=== PATIENT | male | born 1965 | race Caucasian/White ===

== ENCOUNTER 2018-04-01 17:35 | Emergency (ER) | payer OTHER ==
[~2018-04-01] VITALS: Ht 167.6 cm; Wt 67.6 kg
[2018-04-01 17:49] VITALS: Ht 167.6 cm; Wt 67.6 kg
[2018-04-01 22:41] VITALS: BP 154/97
== END 2018-04-01 22:41 | disposition home or self-care (01) ==
LOC: ED 17:35 → EDBD 17:35 → ED 22:41
DX: S43.401A Unspecified sprain of right shoulder joint, initial encounter (principal); I10 Essential (primary) hypertension; X58.XXXA Exposure to other specified factors, initial encounter; Y93.89 Activity, other specified; Y92.89 Other specified places as the place of occurrence of the external cause; Y99.0 Civilian activity done for income or pay
CPT/HCPCS: J1885; J2270

== ENCOUNTER 2020-08-07 13:35 | Emergency (ER) | payer SELFPAY ==
[~2020-08-07] VITALS: Ht 160 cm; Wt 72.1 kg
[2020-08-07 14:19] VITALS: Ht 160 cm; Wt 72.1 kg
[2020-08-07] MEDS ORDERED: POLYTRIM OP (15:04)
[2020-08-07 15:30] VITALS: BP 146/90
== END 2020-08-07 15:30 | disposition home or self-care (01) ==
LOC: ED 13:35
DX: S05.01XA Injury of conjunctiva and corneal abrasion without foreign body, right eye, initial encounter (principal); I10 Essential (primary) hypertension; W01.0XXA Fall on same level from slipping, tripping and stumbling without subsequent striking against object, initial encounter; Y93.89 Activity, other specified; Y92.89 Other specified places as the place of occurrence of the external cause; Y99.8 Other external cause status
CPT/HCPCS: 90715